=== PATIENT | female | born 1990 ===

== ENCOUNTER 2019-06-08 06:58 | Outpatient (CLI) | payer BC ==
--- NOTE | 2019-06-08 08:17 | ULT ---
COMPLETE ABDOMEN ULTRASOUND: INDICATIONS: Generalized abdominal pain. FINDINGS: No focal hepatic lesion is evident. The visualized pancreas, aorta, and IVC are within normal limits . The spleen measures 9.7 cm. The gallbladder is within normal limits. No sonographic Castillo sign is reported. The common bile du ct measures 4.9 mm. The kidneys are normal appearing. The right kidney measures 9.6 cm in length, and the left measures 10 cm. No free fluid is evident. IMPRESSION: Normal sonographic evaluation of the abdomen. POS: [facility]
== END 2019-06-08 06:59 | disposition home or self-care (01) ==
LOC: BICULT 06:58
PROVIDERS: ATTEND Family Medicine
DX: R10.84 Generalized abdominal pain (principal)
CPT/HCPCS: 76700

== ENCOUNTER 2019-07-21 07:42 | Outpatient (CLI) | payer BC ==
--- NOTE | 2019-07-21 08:15 | CT ---
CT ABDOMEN AND PELVIS WITH IV CONTRAST 07/21/2019 CLINICAL INFORMATION: Generalized abdominal pain with nausea and diarrhea. COMPARISON: None. Technique: Multiple contiguous axial CT images are obtained through the abdomen and pelvis with IV contrast. Cor onal reformatted images are provided. FINDINGS: Lower Chest: There is mild dependent bibasilar atelectasis. Vessels: The abdominal aorta is normal in caliber without evidence of an aortic dissection. Abdomen: Portal vein:Patent Gallbladder: Within normal limits for CT imaging. Liver: within normal limits. Spleen: within normal limits. Pancreas: within normal limits. Adrenals: within normal limits. Kidneys: within normal limits. Bowel: There is a moderate amount of retained fecal material seen throughout the colon. Loops of smal l bowel are normal in caliber. Appendix: The appendix is visualized and normal in caliber. Peritoneum: No ascites or free air; no fluid collection. Mesentery and Retroperitoneum: No enlarged mesenteric or retroperitoneal lymph nodes. Abdominal Wall: within normal limits. Pelvis: Reproductive Organs: Mild nonspecific asymmetric prominence of the left ovary compared to the right. Diminished attenuation is seen in the endometrial canal likely related to stage of the patient's menstrual cycle. Pelvis within normal limits. Bladder: within normal limits. Bones: within normal limits. IMPRESSION: 1. Constipation. 2. No acute findings are seen in the abdomen or pelvis.
[2019-07-21] MEDS ORDERED: ISOVUE-370 76%-LOCM 1 ML ONE (11:09)
== END 2019-07-21 07:43 | disposition home or self-care (01) ==
LOC: BICCT 07:42
PROVIDERS: ATTEND Family Medicine
DX: R10.84 Generalized abdominal pain (principal); R59.9 Enlarged lymph nodes, unspecified; R19.8 Other specified symptoms and signs involving the digestive system and abdomen; K59.00 Constipation, unspecified
CPT/HCPCS: 74177; Q9966